=== PATIENT | female | born 1990 | race Caucasian/White ===

== ENCOUNTER 2016-11-01 14:56 | Inpatient (IN) | payer BC ==
[~2016-11-01] VITALS: Ht 157.6 cm; Wt 100.9 kg
[~2016-11-01 14:56] MED LIST: APRI 0.15 MG-0.1 TAB PO; NORCO 325 MG-51 TAB PO; PERCOCET 325 MG1 TA2 PO; XARELTO15 MG PO; ZOFRAN 4MG T4 MG/TAB PO
[2016-11-24] VITALS (59 sets, daily range): BP systolic 93–137; BP diastolic 51–88; PULSE 71–120; TEMP 97.7–98.4
[2016-11-24 07:46] LABS: BASO % 0.1 % (0.0-2.0); EOS # 0.1 (0.0-0.7); EOS % 0.7 % (0-4.0); GRAN # 5.1 (1.4-6.5); GRAN % 61.4 % (42.2-75.2); HEMOGLOBIN 12.6 g/dl (12.5-16.0); LYMPH # 2.4 (1.2-3.4); LYMPH % 28.1 % (20.0-51.0); MEAN CELL VOLUME 88 fl (80.0-100.0); MEAN CORPUSCULAR HEMOGLOBIN 30 pg (27.0-31.0); MEAN CORPUSCULAR HGB CONC 34 g/dl (33.0-37.0); MEAN PLATELET VOLUME 12.5 fl (7.4-10.4); MONO # 0.8 (0.1-0.6); MONO % 9.1 % (1.7-9.3); PLATELET COUNT 176 K/mm3 (130-400); RED BLOOD COUNT 4.17 M/mm3 (4.10-5.30); REDCELL DISTRIBUTION WIDTH-CV 13.3 % (11.5-14.5); WHITE BLOOD COUNT 8.4 K/mm3 (4.8-10.8)
[2016-11-24 07:54] LABS: HEMATOCRIT 36.8 % (37.0-47.0)
[2016-11-24] MEDS ORDERED: MOTRIN 800800 MG/TAB PO (22:25)
[2016-11-24] MEDS ORDERED: PERCOCET 325 MG1 TA2 PO (22:26)
[2016-11-24] MEDS ORDERED: LOVENOX 4040 MG/0.4 SQ (22:27)
[2016-11-25] VITALS (18 sets, daily range): BP systolic 67–118; BP diastolic 47–76; PULSE 85–106; TEMP 97.9–98.6
[2016-11-25 10:12] LABS: HEMATOCRIT 33.2 % (37.0-47.0); HEMOGLOBIN 11.4 g/dl (12.5-16.0)
[2016-11-26 09:00] VITALS: BP 117/69; PULSE 76; TEMP 98.4
[2016-11-26 16:00] VITALS: BP 116/79; PULSE 84; TEMP 98.9
[2016-11-26 22:50] VITALS: BP 108/58; PULSE 86; TEMP 98
[2016-11-27 07:30] VITALS: BP 105/64; PULSE 80; TEMP 98.3
== END 2016-11-27 18:15 | disposition home or self-care (01) | DRG 766 ==
LOC: LDR 11-24 06:32 → OB 11-24 06:32 → LDR 11-24 11:57 → OB 11-25 00:45 → EDSTATUS 12-01 08:26 → LDRO 12-01 14:55
PROVIDERS: Obstetrics & Gynecology
PROC: 10D00Z1 Extraction of Products of Conception, Low, Open Approach (ICD-10-PCS; principal; 2016-11-24)
PROC: 3E033VJ Introduction of Other Hormone into Peripheral Vein, Percutaneous Approach (ICD-10-PCS; 2016-11-24)
DX: O35.8XX0 Maternal care for other (suspected) fetal abnormality and damage, not applicable or unspecified (principal); O75.89 Other specified complications of labor and delivery; O99.824 Streptococcus B carrier state complicating childbirth; O62.0 Primary inadequate contractions; Z3A.38 38 weeks gestation of pregnancy; Z37.0 Single live birth
CPT/HCPCS: A9284; J0690; J1650; J1885; J2210; J2270; J2370; J2400; J2405; J2590; J2795; J3010; J3370; J7050; J7120

== ENCOUNTER 2019-09-18 10:03 | Inpatient (IN) | payer BC ==
[~2019-09-18] VITALS: Ht 157.5 cm; Wt 96.4 kg
[2019-09-18] VITALS (17 sets, daily range): BP systolic 94–120; BP diastolic 48–72; PULSE 63–99; TEMP 97.1–98
[~2019-09-18 10:03] MED LIST changes: +LOVENOX 4040 MG/0.4 SQ; +MOTRIN 800800 MG/TAB PO
[2019-09-18] MEDS ORDERED: EVENING PRIMRO500 MG (10:45)
[2019-09-18] MEDS ORDERED: PRENATAL VITAMI1 TA3 PO (10:45)
[2019-09-18] MEDS ORDERED: NATURE'S BLEND600 M2 PO (10:45)
[2019-09-18 10:52] LABS: BASO % 0.3 % (0.0-2.0); EOS # 0.1 (0.0-0.7); EOS % 0.5 % (0-4.0); GRAN # 7.3 (1.4-6.5); GRAN % 70.3 % (42.2-75.2); HEMATOCRIT 38.6 % (37.0-47.0); HEMOGLOBIN 13.1 g/dl (12.5-16.0); LYMPH # 2.4 (1.2-3.4); LYMPH % 23.3 % (20.0-51.0); MEAN CELL VOLUME 92 fl (80.0-100.0); MEAN CORPUSCULAR HEMOGLOBIN 31 pg (27.0-31.0); MEAN CORPUSCULAR HGB CONC 34 g/dl (33.0-37.0); MEAN PLATELET VOLUME 12.1 fl (7.4-10.4); MONO # 0.5 (0.1-0.6); MONO % 5.1 % (1.7-9.3); PLATELET COUNT 166 K/mm3 (130-400); RED BLOOD COUNT 4.22 M/mm3 (4.10-5.30); REDCELL DISTRIBUTION WIDTH-CV 13.7 % (11.5-14.5)
--- NOTE | 2019-09-18 11:15 | NUR ---
Patient requesting SVE - SVE /-2 per this RN.
[2019-09-18] MEDS ORDERED: LOVENOX 4040 MG/0.4 SQ (11:44)
[2019-09-18] MEDS ORDERED: PERCOCET 325 MG1 TA2 PO (11:44)
[2019-09-18] MEDS ORDERED: MOTRIN 800800 MG/TAB PO (11:44)
[2019-09-19 00:05] VITALS: BP 116/63; PULSE 68; TEMP 97.8
[2019-09-19 04:45] VITALS: BP 103/67; PULSE 71; TEMP 98.4
[2019-09-19 09:15] VITALS: BP 112/77; PULSE 77; TEMP 98.7
[2019-09-19 16:31] VITALS: BP 121/63; PULSE 87; TEMP 98
[2019-09-19 20:00] VITALS: BP 120/65; PULSE 67; TEMP 97.5
[2019-09-20 08:05] VITALS: BP 114/75; PULSE 73; TEMP 97.4
== END 2019-09-20 13:55 | disposition home or self-care (01) | DRG 788 ==
LOC: OB 10:03 → LDR 15:35 → OB 09-20 13:55
PROVIDERS: ADMIT Obstetrics & Gynecology
PROC: 10D00Z1 Extraction of Products of Conception, Low, Open Approach (ICD-10-PCS; principal; 2019-09-18)
DX: O34.211 Maternal care for low transverse scar from previous cesarean delivery (principal); O99.214 Obesity complicating childbirth; O36.63X0 Maternal care for excessive fetal growth, third trimester, not applicable or unspecified; Z3A.40 40 weeks gestation of pregnancy; Z37.0 Single live birth; Z86.718 Personal history of other venous thrombosis and embolism; Z88.0 Allergy status to penicillin; Z88.5 Allergy status to narcotic agent
CPT/HCPCS: J0690; J1650; J1885; J2175; J2370; J2405; J2590; J3010; J7120

== ENCOUNTER → 2019-09-25 | Outpatient (CLI) | payer BC ==
[~2019-09-25] MED LIST changes: +EVENING PRIMRO500 MG; +NATURE'S BLEND600 M2 PO; +PRENATAL VITAMI1 TA3 PO
--- NOTE | 2019-09-25 12:10 | NUR ---
Pt, Pamela Horner, presents for outpatient consult with one week old baby boy, Cortez Perea. She has concerns about his latch as he is fussy, gassy, and eats frequently. Cortez was born by c/section on 08/29/2021 and weighed 10#3oz (4620 gms). Discharge weight was 9#7oz (4295 gms). Today Cortez weights 9#10.9oz (4390 gms). Pt reports he has QS voids and stools. He has eaten 13 times in each of the last 2 days. She states she has lumps in her breast from Cortez not emptying them completely. Pt latches Cortez and he appears to be latched well. While nuring stridor is noted. Pt states this is common with feedings. After Cortez has a weight gain of 1.7oz (52 gms), which is less than expected for his size, but probably accounts for his frequent feedings. Also noted by observation while he was crying is a possible tongue tie. This did not seem to impact his latch but may contribute, along with the stridor, more air intake during feedings causing the gassiness. POC: Continue feeds ad aimee. Pt advised to monitor stridor for worsening and follow weight gain closely; that she can try pumping after feedings and supplementing by bottle to see if he gets more content and allows for better rest between feedings; that she can reach out to a dentist to evaluate for tongue tie. F/U: as scheduled with Cortez's physician or more frequently if concerns arise. Questions invited and answered.
== END ==
LOC: LAC 10:55
DX: Z39.1 Encounter for care and examination of lactating mother (principal)